=== PATIENT | male | born 1995 | race African-American/Black ===

== ENCOUNTER 2024-09-11 03:43 | Emergency (ER) | payer SELFPAY ==
[~2024-09-11] VITALS: Ht 182.9 cm; Wt 90.0 kg
[~2024-09-11 03:43] MED LIST: METH-653 MT; NAPR-679 MT
[2024-09-11 03:49] VITALS: BP 149/97; PULSE 94; RESP 16; TEMP 98.4; O2SAT 100
[2024-09-11] MEDS: DEXAMETHASONE 10 MG/ML VIAL IM ONE (04:34)
[2024-09-11] MEDS: FAMOTIDINE 20MG TABLET PO ONE (04:34)
[2024-09-11] MEDS ORDERED: PRED5TAB48 MT (04:47)
[2024-09-11] MEDS ORDERED: DIPH25CA83 PO (08:07)
== END 2024-09-11 06:07 | disposition home or self-care (01) ==
LOC: ER 03:43
DX: T78.40XA Allergy, unspecified, initial encounter (principal); X58.XXXA Exposure to other specified factors, initial encounter
CPT/HCPCS: 99283; 96372; J1100

== ENCOUNTER 2024-09-11 06:12 | Emergency (ER) | payer SELFPAY ==
[~2024-09-11] VITALS: Ht 175.3 cm; Wt 89.5 kg
[~2024-09-11 06:12] MED LIST changes: +PRED5TAB48 MT
[2024-09-11 06:19] VITALS: O2SAT 96
[2024-09-11 06:35] VITALS: BP 120/81; PULSE 84; RESP 18; TEMP 97.9; O2SAT 99
[2024-09-11] MEDS ORDERED: DIPH25CA83 PO (08:07)
== END 2024-09-11 10:26 | disposition home or self-care (01) ==
LOC: ER 06:12
DX: T78.40XA Allergy, unspecified, initial encounter (principal); I10 Essential (primary) hypertension; E11.9 Type 2 diabetes mellitus without complications; X58.XXXA Exposure to other specified factors, initial encounter
CPT/HCPCS: 99282